=== PATIENT | female | born 1990 | race Caucasian/White ===

== ENCOUNTER 2024-11-05 15:01 | Inpatient (IN) | payer MEDICAID, SELFPAY ==
[2024-11-05] VITALS (69 sets, daily range): BP systolic 100–149; BP diastolic 52–88; PULSE 72–127; RESP 14–16; TEMP 36.3–36.9; O2SAT 81–100; BMI 37.4
[2024-11-05 14:57] LABS: ROM Internal Control Test YES-OK TO RESULT pt. (Internal QC)
[2024-11-05 14:58] LABS: ROM Patient Test POSITIVE (Negative); Record Kit Lot#, ROM+ K1972
[2024-11-05] MEDS: Lactated Ringers 1,000 ML 50 ML IV (15:41)
[2024-11-05] MEDS: Oxytocin 15 Units/NS 250ml 15 UNITS/250 ML IV.SOLN 2 UNITS IV (15:49)
[2024-11-05 16:26] LABS: Bedside Glucose 126 mg/dL (74-106)
[2024-11-05 16:45] LABS: Syphilis Antibodies Non-reactive
[2024-11-05 17:03] LABS: Absolute Lymphocyte Count 3.78 X10^3/uL (0.83-4.51); Basophil# 0.08 X10^3/uL; Basophil% 0.4 % (0-1); Eosinophil# 0.29 X10^3/uL; Eosinophils% 1.3 % (0-5); Hematocrit 41.4 % (37-47); Hemoglobin 13.9 g/dL (12.0-15.0); Lymphocyte # 3.78 X10^3/ul (0.83-4.51); Lymphocyte % 17.1 % (19-41); Mean Corp Hgb Conc 33.6 g/dL (32-36); Mean Corpuscular Hgb 29.7 pg (27.0-32.0); Mean Corpuscular Volume 88.5 fL (81-99); Mean Platelet Vol. 12.1 fl (6.2-12.0); Monocyte# 1.58 X10^3/uL; Monocyte% 7.2 % (0-10); NRBC Flagged by Analyzer 0 % (0-5); Neutrophil % 72.5 % (47-70); POSITIVE DIFFERENTIAL YES; Platelet Count 361 K/mm3 (150-450); RBC Distribution Width CV 13.7 % (11.6-14.6); RBC Distribution Width SD 44.3 fl (35.1-43.9); Red Blood Count 4.68 M/mm3 (4.2-5.4); White Blood Count 22.1 K/mm3 (4.4-11.0)
[2024-11-05 17:06] LABS: Differential Indicated SCAN CRITERIA MET
[2024-11-05 17:15] LABS: Bedside Glucose 97 mg/dL (74-106)
--- NOTE | 2024-11-05 17:44 | PCM.HP.OB ---
HPI - General General Date of Admission: 11/05/24 Date of Service: 11/05/24 Chief Complaint: SROM HPI Narrative MARKEL FINN, is a 33 F who presents at 37w5d after SROM at home for clear-blood tinged fluid. Irregular ctx's. Good FM. No other complaints. Did not take morning NPH. [facility] Medical History Iron deficiency B12 deficiency Abnormal glucose Postoperative primary hypothyroidism Vitamin deficiency Vision problem Thyroid disease Pneumonia PCOS (polycystic ovarian syndrome) Frequent headaches Gastrointestinal problem Diabetes UTI (urinary tract infection) Asthma Anemia Allergies Tonsil and adenoid disease, chronic Home Medications ?Medication ?Instructions ?Recorded ?Last Taken ?Type fluticasone 500 mcg-salmeterol 50 1 inh inhalation 06/03/22 11/04/24 History mcg/dose blistr powdr for inhalation (Advair Diskus) mepolizumab 100 mg subcutaneous 300 mg subcut Q4W 06/03/22 Unknown History solution (Nucala) vitamin B complex (B 1 tab PO DAILY 06/03/22 Unknown History Complex-Vitamin B12 tablet) OneTouch Verio test strips (blood #150 ea 05/31/24 Unknown Rx sugar diagnostic) albuterol sulfate 90 mcg/actuation 2 inh inhalation Q8H PRN asthma 05/31/24 11/05/24 History aerosol inhaler (Ventolin HFA) blood-glucose meter (OneTouch #1 ea 05/31/24 Unknown Rx Verio Flex Meter) bupropion HCl 200 mg tablet,12 hr 200 mg PO DAILY 05/31/24 Unknown History sustained-release cetirizine 10 mg tablet 10 mg PO DAILY 05/31/24 11/04/24 History lancets 33 gauge (OneTouch Delica #150 ea 05/31/24 Unknown Rx Plus Lancet) montelukast 10 mg tablet 10 mg PO DAILY 05/31/24 11/04/24 History prednisone 10 mg tablet 10 mg PO QDAY PRN asthma 05/31/24 11/04/24 History vitamin#30 30 mg iron-10 1 cap PO DAILY 05/31/24 11/04/24 History mg iron-folic acid 1 mg-omg3 capsule levothyroxine 137 mcg tablet 137 mcg PO QDAY #90 tabs 08/30/24 11/04/24 Rx Allergy/AdvReac Type Severity Reaction Status Date / Time shellfish derived Allergy Unknown Other Verified 11/05/24 14:26 Family History Other Alcohol abuse Anxiety Asthma CVA (cerebral vascular accident) Depression Diabetes Heart disease Mental disorder Myocardial infarction Thyroid disorder Surgical History H/O tubal ligation History of thyroidectomy, total Social History (System 12/21/23 @ 14:33 by Noemi Villalba) Smoking Status: Former smoker alcohol intake: current alcohol intake frequency: holidays/special occasions only Alcohol type: wine substance use type: unknown frequency: other History Elective abortions Hx Para 5 Spontaneous abortions Hx # Term Pregnancies Ectopic pregnancies Hx # Pregnancies Multiple births # of living children Addt'l History: History prior vaginal deliveries. Placental abruption with first at 22 weeks. NST FHR Rate Baby A Baseline: 145 Variability:: Moderate Accelerations:: 15 x 15 Decelerations:: None NST Reactive:: Yes FHR Category:: Category I Uterine Activity:: irregular Vital Signs Vital Signs Vital Signs: 11/05/24 14:21 11/05/24 14:21 11/05/24 14:23 Temperature Temperature Source Temporal Pulse Rate 93 Respiratory Rate Blood Pressure 127/74 H BP Systolic 127 BP Diastolic 74 Pulse Ox 11/05/24 14:23 11/05/24 14:23 11/05/24 14:25 Temperature 98.5 F Temperature Source Pulse Rate 95 Respiratory Rate 16 Blood Pressure BP Systolic BP Diastolic Pulse Ox 11/05/24 14:25 11/05/24 14:30 11/05/24 14:30 Temperature Temperature Source Pulse Rate 98 Respiratory Rate Blood Pressure BP Systolic BP Diastolic Pulse Ox 96 96 11/05/24 14:35 11/05/24 14:35 11/05/24 14:40 Temperature Temperature Source Pulse Rate 96 98 Respiratory Rate Blood Pressure BP Systolic BP Diastolic Pulse Ox 98 11/05/24 14:40 11/05/24 14:45 11/05/24 14:45 Temperature Temperature Source Pulse Rate 100 Respiratory Rate Blood Pressure BP Systolic BP Diastolic Pulse Ox 96 97 11/05/24 14:50 11/05/24 14:50 11/05/24 14:55 Temperature Temperature Source Pulse Rate 94 98 Respiratory Rate Blood Pressure BP Systolic BP Diastolic Pulse Ox 96 11/05/24 14:55 11/05/24 15:00 11/05/24 15:00 Temperature Temperature Source Pulse Rate 93 Respiratory Rate Blood Pressure BP Systolic BP Diastolic Pulse Ox 94 96 11/05/24 15:05 11/05/24 15:05 11/05/24 16:50 Temperature Temperature Source Pulse Rate 92 Respiratory Rate 16 Blood Pressure BP Systolic BP Diastolic Pulse Ox 96 11/05/24 16:51 11/05/24 16:51 11/05/24 16:51 Temperature Temperature Source Pulse Rate 82 Respiratory Rate Blood Pressure 116/69 BP Systolic 116 BP Diastolic 69 Pulse Ox 93 11/05/24 16:51 11/05/24 16:51 11/05/24 16:51 Temperature 98.0 F Temperature Source Temporal Pulse Rate Respiratory Rate 16 Blood Pressure BP Systolic BP Diastolic Pulse Ox Weight Weight: 191 lb 12.8 oz Body Mass Index (BMI) 37.4 Physical Exam Const alert and no apparent distress General Appearance: comfortable HEENT normocephalic Resp normal respiratory effort GI non-tender and non-distended Narrative: Cvx 3/60/-2, vertex, forebag ruptured incidentally for clear fluid on cervical exam Labs Labs Labs: Blood Type A POSITIVE Antibody Screen NEGATIVE Hct 41.4 % (37-47) Hgb 13.9 g/dL (12.0-15.0) Syphilis Total Ab Non-reactive Assessment & Plan (1) 37 weeks gestation of : PLAN: Patient presented after SROM at home with ROM plus positive. Forebag ruptured on exam with cervical check. - Pitocin per protocol for augmentation - Diabetic protocol - Epidural for pain control - GBS negative - EFW expected < 4500 grams and pelvis adequate (2) SROM (spontaneous rupture of membranes): (3) GDM, class A2: (4) Hypothyroidism: (5) History of asthma: (6) Obesity affecting :
[2024-11-05 18:08] LABS: Differential Comment MONOCYTOSIS; Platelet Estimate ADEQUATE (ADEQ); Platelet Morphology LARGE
[2024-11-05 18:09] LABS: Red Cell Morphology NORM C+C NORMAL (NORM C&C)
[2024-11-05] MEDS: Lactated Ringers 1,000 ML 999 ML IV (19:03)
[2024-11-05] MEDS: fentaNYL-bupivacaine (epidural) 100 ML BAG EPIDURAL (20:36)
[2024-11-05 21:24] LABS: Bedside Glucose 104 mg/dL (74-106)
--- NOTE | 2024-11-05 22:09 | OB.VAGDELI_ITS ---
Assessment & Plan (1) Obesity affecting : (2) History of asthma: (3) Hypothyroidism: (4) GDM, class A2: (5) SROM (spontaneous rupture of membranes): (6) 37 weeks gestation of : (7) Vaginal delivery: Vaginal Delivery Maternal Presentation Maternal Presentation: Spontaneous Rupture of Membranes Type of Induction: Pitocin and Amniotomy (Forebag) Vaginal Delivery Information Procedure Performed: Spontaneous Vaginal Delivery Surgeon/Practitioner: Liz Boyce Date of Procedure: 11/05/24 Pre-Procedure Diagnosis: 37 week gestation, SROM, obesity, A2GDM Post-Procedure Diagnosis: As above Type of anesthesia: Epidural Special Medications: None Estimated Blood Loss: 100 Fluids Replaced: N/A Findings Description of procedure: Patient was complete and pushing in dorsal lithotomy position. The head of the delivered over an intact perineum. The anterior shoulder delivered with gentle downward traction followed by the posterior shoulder and body without any force, delay, or excessive traction. A vigorous VMI was delivered and placed on maternal abdomen. The amniotic fluid was clear until time of delivery. As the infant was delivering the fluid was lightly meconium stained therefore burial vault deliverer and installer and respiratory therapy were called. Apgars 9, 9. The cord was clamped and cut after a 60 second delay by the FOB. The placenta delivered spontaneously, and was noted to be normal appearing and intact with a 3VC. The fundus was firm and bleeding scant. No lacerations were noted. Sponge counts were correct and a vaginal sweep performed. Procedure findings: Vigorous VMI in ALMAS position with Apgars 9, 9. Light meconium stained fluid just at time of delivery. Normal appearing placenta with 3 VC. Presentation: ALMAS Amniotic Membrane Rupture Type: Spontaneous Amniotic Fluid Description: Clear and Lightly stained meconium (At time of delivery) Placental Delivery Description: Spontaneous Specimen collected: No Cord Vessel Description: 3 Vessels Cord Entanglement: None Infant A Gender: Male (1 minute): 9 (5 minute): 9 Delayed Cord Clamping: Yes Soil Tester twist packer: No Post Vaginal Deli Medications given after delivery: IV Pitocin Episiotomy Description: None Laceration: None Complication Complications: No
[2024-11-05] MEDS: Oxytocin 15 Units/NS 250ml 15 UNITS/250 ML IV.SOLN 83 UNITS IV (22:35)
[2024-11-05 23:10] LABS: Bedside Glucose 108 mg/dL (74-106)
[2024-11-06] VITALS (8 sets, daily range): BP systolic 103–174; BP diastolic 52–123; PULSE 66–86; RESP 16–18; TEMP 36.2–36.6; O2SAT 97
[2024-11-06] MEDS: Methylergonovine 0.2 MG/ML Ampul IM (00:20)
[2024-11-06] MEDS: Levothyroxine 137 MCG Tablet PO (05:29)
--- NOTE | 2024-11-06 05:37 | NURSING ---
patient passed a baseball sized clot, RN and Paramedic Supervisor asessed clot. Patients uterus firm and 2 below, bleeding scant. Patient denies being dizzy or lightheaded. vitals completed. patient stated she felt relief from the clot.
[2024-11-06 07:05] LABS: Bedside Glucose 90 mg/dL (74-106)
[2024-11-06] MEDS: Ibuprofen 600 MG Tablet PO ×2 (07:22→17:25)
--- NOTE | 2024-11-06 08:03 | PCM.PROGNOTE ---
Subjective Subjective patient seen at bedside, doing well. Patient reports good pain control. lochia mild. Objective Data Objective Data Vital Signs: Vital Signs Temp Pulse Resp BP Pulse Ox O2 Del Method 97.7 F L 74 16 103/60 97 Room Air 11/06/24 07:30 11/06/24 07:30 11/06/24 07:30 11/06/24 07:30 11/06/24 04:55 11/06/24 04:55 Oxygen Delivery Method Room Air Weight: 86.999 kg Body Mass Index (BMI) 37.4 Intake & Output: Intake and Output for Last 24 Hours 11/04/24 11/05/24 11/06/24 23:59 23:59 23:59 Intake Total 1011.15 / 1011.15 815.83 / 815.83 Output Total 100 / 100 700 / 700 Balance 911.15 / 911.15 115.83 / 115.83 Lab / Micro Data 11/05/24 15:30 Labs: Laboratory Results - last 24 hr 11/05/24 14:30: Vag Amniotic Fld Detect POSITIVE H 11/05/24 15:30: WBC 22.1 H, RBC 4.68, Hgb 13.9, Hct 41.4, MCV 88.5, MCH 29.7, MCHC 33.6, RDW Std Deviation 44.3 H, RDW Coeff of Myla 13.7, Plt Count 361, MPV 12.1 H, Immature Gran % (Auto) 1.500 H, Neut % (Auto) 72.5 H, Lymph % (Auto) 17.1 L, Candler % (Auto) 7.2, Eos % (Auto) 1.3, Baso % (Auto) 0.4, Absolute Neuts (auto) 16.0 H, Absolute Lymphs (auto) 3.78, Nucleated RBC % 0, Differential Comment MONOCYTOSIS, Diff Path Review May foll, Platelet Estimate ADEQUATE, Plt Morphology Comment LARGE, RBC Morphology NORM C+C, Syphilis Total Ab Non-reactive, Blood Type A POSITIVE, Antibody Screen NEGATIVE 11/05/24 15:50: POC Glucose 126 H 11/05/24 16:54: POC Glucose 97 11/05/24 20:55: POC Glucose 104 11/05/24 22:35: POC Glucose 108 H 11/06/24 05:23: POC Glucose 90 Physical Exam Narrative Abd: fundus firm Const alert and oriented x3 General Appearance: cooperative HEENT normocephalic Neck General: normal visual inspection GI soft to palpation and non-distended GI Narrative: Fundus firm Extremity normal to inspection and no calf tenderness Skin no rashes or lesions noted Neuro oriented x3 and CN's II-XII intact bilaterally Psych mental status grossly normal
[2024-11-06] MEDS: Montelukast 10 MG Tablet PO (09:11)
[2024-11-06] MEDS: MEASLES,MUMPS,RUBELLA VACC/PF 0.5 ML SC (09:12)
[2024-11-06 13:56] LABS: Pathologist Review Reviewed
--- NOTE | 2024-11-06 14:21 | CASEMGMT ---
Social Work Assessment Labor and Delivery Unit Patient Address: [address] [place] [id number] Phone number: [phone] Date of Referral: 11/05/24 Time of Referral: 153 Referred By: Liz Boyce Date of Intervention: 11/06/24 Time of Intervention: 1400 Reason for Referral: hx of anxiety, parents alcoholic Sw completed chart review and acknowledges social work consult due to history of anxiety and patient has parent with alcohol abuse. Sw presented to beside introduced self to mother of baby (YOVANY- Winter) and explained reason for sw involvement. Sw completed psychosocial assessment. History obtained from: medical records and mother of baby (MOB) Household composition: Currently residing in the family home is MOB, father of baby (FOB- Gudelia), their four older children: Daniel (14), Golden (12), Emery (10) and Chester (4). baby to be added to residence when ready for discharge. MOB denies any issues or concerns with housing, stating that it is safe and secure. Patient's parent/guardian status: YOVANY states that she and FOB have been together for 20 years, meeting and starting to date when she was only 13 and he was 14. MOB and FOB are . MOB states that they have been together most of their lives. MOB denies any domestic violence or intimate partner violence. Medical History: YOVANY is 33 year old female who is 6, para 5- now 6 following labor and delivery of . YOVANY did experience demise at 22 weeks gestation, daughter Yareli. YOVANY received routine care during [facility]. YOVANY presented to hospital and delivered baby via vaginal delivery at 37 weeks gestation on 11/05/24. Baby boy, named Nasir Napoles, was born weighing 6lb 9oz and had apgars of 9 and 9 at one and five minutes of life, respectfully. YOVANY states that she is working on breast feeding and baby will be followed by Dr. Villegas. Educational Status:YOVANY states that both parents graduated from high school and attended some college, no degree. YOVANY denies problems with reading, learning or comprehension. Financial Status: Both parents are employed outside of the home, they both work for the same company. 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 Infant Supplies: Parents have obtained all necessary baby supplies, including: car seat, safe sleep space, clothes, diapers and wipes. MOB states that she still needs to obtain a breast pump with the help from . Childcare/Caregiver(s): YOVANY states that she will be the primary caregiver to baby along with FOViraj. When both parents have returned to work their children are cared for by paternal grandma. Transportation: No transportation barriers, both parents have their drivers license and reliable means of transportation. Programs/Agencies Involved: YOVANY reports that she has [employer] insurance provided by [employer] [facility] [employer] [facility], and [facility] Children Services/Legal Issues: MOB denies prior children services involvement, or prior legal involvement. NO issues or concerns warranting referral to be made at this time. Behavioral Health Issues: Mental Health History: MOB states that she has been diagnosed with anxiety. She was previously prescribed Wellbutrin, but stopped taking it during . MOB states that she feels as though her mental health has been appropriately managed during her . MOB states at this time she feels happy and good. Denies feeling anxious, overwhelmed or sad/ depressed Substance Use History: MOB denies substance use prior to and during . Family History: Both maternal grandma and maternal grandpa have substance use history positive for prescription drug abuse and alcohol abuse. MOB encouraged to recognize her genetic disposition and to refrain from abusing drugs or alcohol and to always use healthy and safe coping mechanisms if she is feeling overwhelmed or anxious. MOB expressed understanding. Drug Screens: NO drug screens observed during chart review. Family/Social Stressors: MOB denies any issues, concerns or stressors at this time. Support Systems: MOB identifies that JOSEE is her biggest support person. Depression/Shaken Baby/Safe Sleeping: Sw educated MOB on signs and symptoms of baby blues and mood and anxiety disorders to be mindful of during this period. MOB states that if she were to struggle FOViraj would be able to recognize that and would know how to help and support her. Sw educated MOB on shaken baby prevention and ABCs of safe sleep. MOB expressed understanding. ASSESSMENT: MOB and baby admitted following labor and delivery of . MOB was laying in bed comfortably when sw presented to bedside and was receptive to meeting with sw. MOB talkative and engaging throughout completion of assessment. Baby was not in room as he was getting circumcised and FOB was at home with their older children. MOB states that she and FOB thought that they were done having children, but this was a surprise. MOB states initially there was a lot of shock and disbelief, but then both parents were accepting and welcoming of and eager to meet baby. MOB states thankful for healthy and safe delivery. MOB working on breast feeding and receptive to follow up with outpatient supports. MOB states to having all necessary baby supplies and her as natural support. PLAN: MOB and baby to be discharged when medically ready. MOB was provided list of [facility] resources, information on Help Me Grow, safe sleep, signs and symptoms of baby blues and mood and anxiety disorders and shaken baby prevention. No other services requested or indicated. Sean Collins, DIRECTOR ORACLE, COMMERCIAL LENDING VICE PRESIDENT
[2024-11-06] MEDS: Budesonide Respules 0.5 MG/2 ML AMPUL.NEB. INHALATION (19:13)
[2024-11-06] MEDS: Albuterol 2.5 MG/3 ML VIAL.NEB. INHALATION (19:13)
[2024-11-07 01:37] VITALS: BP 104/63; PULSE 65; RESP 18; TEMP 36.6; O2SAT 96
[2024-11-07] MEDS: Levothyroxine 137 MCG Tablet PO (05:52)
[2024-11-07 07:48] VITALS: BP 114/76; PULSE 72; RESP 16; TEMP 36.8; O2SAT 96
--- NOTE | 2024-11-07 08:43 | PCM.PN.OB ---
Subjective Subjective Doing well. Ambulating and voiding without difficulty. Mild lochia. Breast feeding. Objective Data Objective Data Vital Signs: Vital Signs Temp Pulse Resp BP Pulse Ox O2 Del Method 98.2 F 72 16 114/76 96 Room Air 11/07/24 07:48 11/07/24 07:48 11/07/24 07:48 11/07/24 07:48 11/07/24 07:48 11/07/24 07:48 Oxygen Delivery Method Room Air Weight: 86.999 kg Body Mass Index (BMI) 37.4 Intake & Output: Intake and Output for Last 24 Hours 11/05/24 11/06/24 11/07/24 23:59 23:59 23:59 Intake Total 1011.15 / 1011.15 815.83 / 815.83 Output Total 100 / 100 700 / 700 Balance 911.15 / 911.15 115.83 / 115.83 Lab / Micro Data 11/05/24 15:30 Labs: Laboratory Results - last 24 hr 11/05/24 15:30: Diff Path Review Reviewed ROS Constitutional Constitutional: Denies fatigue, fever(s) or malaise Eyes Eyes: Denies change in vision ENT HEENT: Denies dizziness or headache(s) Cardiovascular Cardiovascular: Denies chest pain, dyspnea or lightheadedness Respiratory/Chest Respiratory/Chest: Denies cough or dyspnea Gastrointestinal Gastrointestinal: Denies change in bowel habits Genitourinary Genitourinary: Denies burning urination or genital lesions Integumentary Integumentary: Denies rash Neurologic Neurologic: Denies confusion, dizziness, headache(s), numbness or weakness Physical Exam Const alert and no apparent distress Narrative: Fundus firm, below umbilicus. Assessment & Plan (1) (spontaneous vaginal delivery): PLAN: Plan Discharge home
--- NOTE | 2024-11-07 08:45 | PCM.DC.SUM ---
Providers Date of Admission: 11/05/24 Date of Discharge: 11/07/24 Primary Care Physician: MAHIN Guidry Reason For Visit: LABOR Diagnosis Discharge Diagnosis (1) (spontaneous vaginal delivery): Status: Acute Code(s): O80 - Encounter for full-term uncomplicated delivery Plan Discharge home Medications at Discharge Home Medications fluticasone 500 mcg-salmeterol 50 mcg/dose blistr powdr for inhalation (Advair Diskus) 1 inh inhalation 06/03/22 mepolizumab 100 mg subcutaneous solution (Nucala) 300 mg subcut Q4W 06/03/22 albuterol sulfate 90 mcg/actuation aerosol inhaler (Ventolin HFA) 2 inh inhalation Q8H PRN asthma 05/31/24 bupropion HCl 200 mg tablet,12 hr sustained-release 200 mg PO DAILY 05/31/24 cetirizine 10 mg tablet 10 mg PO DAILY 05/31/24 montelukast 10 mg tablet 10 mg PO DAILY 05/31/24 prednisone 10 mg tablet 10 mg PO QDAY PRN asthma 05/31/24 vitamin#30 30 mg iron-10 mg iron-folic acid 1 mg-omg3 capsule 1 cap PO DAILY 05/31/24 levothyroxine 137 mcg tablet 137 mcg PO QDAY #90 tabs 08/30/24 Hospital Course Operations None Procedures None Summary of Care Provided Minutes Spent on Discharge: 21 Hospital Course: Augmentation of labor after SROM. without complication. Breast feeding. Physical Exam Const alert and no apparent distress Narrative: Fundus firm, below umbilicus. Weight / BMI Weight Weight: 86.999 kg Body Mass Index (BMI) 37.4 ABG / Lab / Microbiology Data 11/05/24 15:30 Laboratory: Laboratory Results - last 24 hr 11/05/24 15:30: Diff Path Review Reviewed D/C Instructions May resume sexual activity in: 6 weeks DC O2, CPAP, BIPAP Needs Home O2 Discharge instructions: No Please Follow Up With: Tess Mann MD When: Follow up with our office in 1-2 and 6 weeks or as needed. [phone] Meaningful Use Info Meaningful Use Meaningful Use Diagnoses (Choose all that apply): None applicable Ischemic Stroke Statin Dosing Therapy Reference: STATIN DOSE THERAPY REFERENCE: * Patients > 75 years receive moderate or high dose statin therapy. * Patients 75 years or YOUNGER should receive HIGH intensity statin dose unless contraindicated. You will be required to document reason for non-treatment if statin daily dose does not meet guidelines. HIGH DOSE STATIN THERAPY DAILY Atorvastatin > than or = to 40 mg Rosuvastatin > than or = to 20 mg Amlodipine + Atorvastatin > than or = to 2.5/40 mg Ezetimibe + Simvastatin 10/80 mg Simvastatin 80mg Discharge Plan Admission Admit Date/Time: 11/05/24 15:01 Primary Reason for Your Visit: SROM Attending Provider: Liz Boyce Primary Care Provider: Javier Herrera Discharge Orders/Prescriptions Prescriptions: Continued Nucala 100 mg recon soln 300 mg subcut Q4W Rx Instructions: administer as three 100 mg injections at separate sites fluticasone propion-salmeterol [Advair Diskus] 500-50 mcg/dose blister with device 1 inh inhalation Patient Comments: inhale 1 puff by mouth twice a day albuterol sulfate [Ventolin HFA] 90 mcg/actuation HFA aerosol inhaler 2 inh inhalation Q8H PRN (Reason: asthma) Patient Comments: INHALE 2 PUFFS BY MOUTH EVERY 4 HOURS NEEDED FOR SHORTNESS OF BREATH OR WHEEZING bupropion HCl 200 mg tablet sustained-release 12 hr 200 mg PO DAILY cetirizine 10 mg tablet 10 mg PO DAILY montelukast 10 mg tablet 10 mg PO DAILY Patient Comments: take 1 tablet by mouth at bedtime PNV #[id number] 30 mg iron-10 mg iron-1 mg capsule 1 cap PO DAILY prednisone 10 mg tablet 10 mg PO QDAY PRN (Reason: asthma) levothyroxine 137 mcg tablet 137 mcg PO QDAY Qty: 90 3RF Discontinued vitamin B complex [B Complex-Vitamin B12] Tablet 1 tab PO DAILY (DME) blood-glucose meter [OneTouch Verio Flex meter] Misc See Rx Instructions .Route Qty: 1 0RF Rx Instructions: As directed (DME) OneTouch Verio test strips Strip See Rx Instructions .Route Qty: 150 4RF Rx Instructions: 4 times a day (DME) lancets [OneTouch Delica Plus Lancet] 33 gauge misc See Rx Instructions .Route Qty: 150 4RF Rx Instructions: 4 times per day Referrals / Follow Up: Javier Herrera PA [Primary Care Provider] - Disposition Disposition (needs filled in before D/C Order can be placed): Home, Self Care
[2024-11-07] MEDS: Montelukast 10 MG Tablet PO (10:39)
[2024-11-07] MEDS: Ibuprofen 600 MG Tablet PO (10:39)
[2024-11-07 12:00] VITALS: BP 115/67; PULSE 82; RESP 16; TEMP 36.7; O2SAT 98
== END 2024-11-07 12:30 | disposition home or self-care (01) | DRG 560 ==
LOC: WPOUT 15:07 → WP 15:07
PROVIDERS: Admitting Provider Obstetrics & Gynecology; PCP Physician Assistant; Referring Provider Obstetrics & Gynecology; Visit Provider Obstetrics & Gynecology
DX: O42.92 Full-term premature rupture of membranes, unspecified as to length of time between rupture and onset of labor (principal); Z37.0 Single live birth; O24.429 Gestational diabetes mellitus in childbirth, unspecified control; E89.0 Postprocedural hypothyroidism; J45.909 Unspecified asthma, uncomplicated; O99.214 Obesity complicating childbirth; O77.0 Labor and delivery complicated by meconium in amniotic fluid; O99.284 Endocrine, nutritional and metabolic diseases complicating childbirth; O99.52 Diseases of the respiratory system complicating childbirth; Z3A.37 37 weeks gestation of pregnancy; Z87.59 Personal history of other complications of pregnancy, childbirth and the puerperium; Z87.891 Personal history of nicotine dependence
CPT/HCPCS: 59025; 59050; 82962; 84112; 85025; 86780; 86850; 86900; 86901; 94640; 99221; G0378